=== PATIENT | male | born 1935 | race Caucasian/White ===

== ENCOUNTER 2018-03-28 14:46 | Emergency (ER) | payer MEDICARE ==
--- NOTE | 2018-03-28 16:27 | Emergency Department Record ---
History of Present Illness - General Chief complaint: Lower Extremity Pain Stated complaint: RT LEG PAIN Time Seen by Provider: 03/28/18 16:20 Source: Patient, RN notes reviewed Mode of Arrival: Ambulatory - History of Present Illness Initial comments: sharp pain in the right leg and shooting pain and it comes and goes and he was lifting a tub and it started happening. Tub weighted 50 pounds Onset/Timin -: Hour(s) Location: Right, Lower Leg History of Same: No Radiation: Distal Quality: Stabbing Consistency: Intermittent Improves with: Nothing Worsens with: Nothing Associated Symptoms: Denies other symptoms - Related Data Home Medications Medication Instructions Recorded Confirmed Last Taken Atenolol/Chlorthalidone 1 each PO DAILY 03/28/18 03/28/18 03/28/18 [Atenolol-Chlorthalidone 100-25] Potassium Chloride 10 meq PO BID 03/28/18 03/28/18 03/28/18 Warfarin Sodium 2.5 mg PO DAILY 03/28/18 03/28/18 03/27/18 Previous Rx's Medication Instructions Recorded Cyclobenzaprine HCl [Flexeril] 10 mg PO TID #30 tablet 03/28/18 Allergies Allergy/AdvReac Type Severity Reaction Status Date / Time No Known Drug Intolerances Allergy Unknown PT UNSURE Verified 03/28/18 15:10 OF REACTION Travel Screening - Travel/Exposure Within Last 30 Days Have you traveled within the last 30 days?: No Review of Systems Reviewed: No additional complaints except as noted below Constitutional: Reports: As per HPI. Denies: Chills, Fever, Malaise, Night sweats, Weakness, Weight change Eyes: Reports: As per HPI. Denies: Eye discharge, Eye pain, Photophobia, Vision change ENT: Reports: As per HPI. Denies: Congestion, Dental pain, Ear pain, Epistaxis , Hearing loss, Throat pain Respiratory: Reports: As per HPI. Denies: Cough, Dyspnea, Hemoptysis, Stridor, Wheezes Cardiovascular: Reports: As per HPI. Denies: Arrhythmia, Chest pain, Dyspnea on exertion, Edema, Murmurs, Orthopnea, Palpitations, Paroxysmal nocturnal dyspnea, Rheumatic Fever, Syncope Endocrine: Reports: As per HPI. Denies: Fatigue, Heat or cold intolerance, Polydipsia, Polyuria Gastrointestinal: Reports: As per HPI. Denies: Abdominal pain, Constipation, Diarrhea, Hematemesis, Hematochezia, Melena, Nausea, Vomiting Genitourinary: Reports: As per HPI. Denies: Dysuria, Frequency, Hematuria, Incontinence, Retention, Testicular pain, Testicular mass, Urgency Musculoskeletal: Reports: As per HPI. Denies: Arthralgia, Back pain, Gout, Joint swelling, Myalgia, Neck pain Skin: Reports: As per HPI. Denies: Bruising, Change in color, Change in hair/ nails, Lesions, Pruritus, Rash Neurological: Reports: As per HPI. Denies: Abnormal gait, Confusion, Headache, Numbness, Paresthesias, Seizure, Tingling, Tremors, Vertigo, Weakness Psychiatric: Reports: As per HPI. Denies: Anxiety, Auditory hallucinations, Depression, Homicidal thoughts, Suicidal thoughts, Visual hallucinations Hematological/Lymphatic: Reports: As per HPI. 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 - CARDIOVASCULAR Hx Cardio Disorders: Yes Hx Hypertension: Yes Hx Irregular Heartbeat: Yes Hx Pacemaker/Defib: Yes Comment:: hypercholesteremia - NEURO Hx Neuro Disorders: No - GI Hx GI Disorders: Yes Hx Reflux: Yes - Hx Genitourinary Disorders: Yes Hx Kidney Stones: Yes - ENDOCRINE Hx Endocrine Disorders: No Hx Diabetes: No Hx Thyroid Disease: No - MUSCULOSKELETAL Hx Musculoskeletal Disorders: No - PSYCH Hx Psych Problems: No - HEMATOLOGY/ONCOLOGY Hx Hematology/Oncology Disorders: Yes Hx Anemia: Yes Hx Cancer: Yes (lung) Hx Blood Transfusions: Yes Family Medical History Any Significant Family History?: Yes Hx Heart Disease: Father, Mother, Brother/Sister Physical Exam - General General Appearance: Alert, Oriented x3, Cooperative, No acute distress - Head Head exam: Normal inspection - Eye Eye exam: Normal appearance, PERRL Pupils: Normal accommodation - ENT ENT exam: Normal exam, Mucous membranes moist, Normal external ear exam, Normal orophraynx, TM's normal bilaterally Ear exam: Normal external inspection. negative: External canal tenderness Nasal Exam: Normal inspection. negative: Discharge, Sinus tenderness Mouth exam: Normal external inspection, Tongue normal Teeth exam: Normal inspection. negative: Dental caries Throat exam: Normal inspection. negative: Tonsillar erythema, Tonsillar exudate - Neck Neck exam: Normal inspection, Full ROM. negative: Tenderness - Respiratory Respiratory exam: Normal lung sounds bilaterally. negative: Respiratory distress - Cardiovascular Cardiovascular Exam: Regular rate, Normal rhythm, Normal heart sounds - GI/Abdominal GI/Abdominal exam: Soft, Normal bowel sounds. negative: Tenderness - Rectal Rectal exam: Deferred - exam: Deferred - Extremities Extremities exam: Normal inspection, Full ROM, Normal capillary refill, Tenderness (right medial leg pain) - Back Back exam: Reports: Normal inspection, Full ROM, Tenderness (right low back pain ). Denies: Muscle spasm, Rash noted - Neurological Neurological exam: Alert, Normal gait, Oriented X3, Reflexes normal - Psychiatric Psychiatric exam: Normal affect, Normal mood - Skin Skin exam: Dry, Intact, Normal color, Warm Course Vital Signs 03/28/18 15:07 Temperature 97.3 F L Pulse Rate 106 H Respiratory 16 Rate Blood Pressure 119/80 Pulse Ox 96 Disposition Clinical Impression: Quadriceps strain Qualifiers: Encounter type: initial encounter Laterality: right Qualified Code(s): S76.111A - Strain of right quadriceps muscle, fascia and tendon, initial encounter Lumbar strain Qualifiers: Encounter type: initial encounter Qualified Code(s): S39.012A - Strain of muscle, fascia and tendon of lower back, initial encounter Disposition: Home, Self-Care Condition: (1) Good Instructions: Musculoskeletal Pain (ED) Additional Instructions: follow up with Dr Mckeon Prescriptions: Cyclobenzaprine HCl [Flexeril] 10 mg PO TID #30 tablet Forms: Patient Portal Access Time of Disposition: 16:31 Quality - Quality Measures Quality Measures: N/A - Blood Pressure Screening Does Patient Have Any of the Following: No, Active Dx of HTN Blood Pressure Classification: Pre-Hypertensive BP Reading Systolic Measurement: 119 Diastolic Measurement: 80 Screening for High Blood Pressure: Patient Exclusion, Hx of HTN [G9744]
[2018-03-28] MEDS ORDERED: CYCLOBENZAPRINE 10MG TABLET PO ONE (16:28)
== END 2018-03-28 16:40 | disposition home or self-care (01) ==
LOC: ER 14:46
DX: S76.111A Strain of right quadriceps muscle, fascia and tendon, initial encounter (principal); S39.012A Strain of muscle, fascia and tendon of lower back, initial encounter; X50.0XXA Overexertion from strenuous movement or load, initial encounter; I10 Essential (primary) hypertension; Z87.891 Personal history of nicotine dependence
CPT/HCPCS: 99282

== ENCOUNTER 2018-11-14 16:25 | Emergency (ER) | payer MEDICARE ==
[2018-11-14] MEDS ORDERED: ONDANSETRON HCL IV 4 MG/2 ML VIAL IVP ONE (17:11)
[2018-11-14] MEDS ORDERED: 0.9 % SODIUM CHLORIDE 1000ML 500 ML IV SCH (17:15)
--- NOTE | 2018-11-14 17:15 | Emergency Department Record ---
History of Present Illness - General Stated complaint: VOMITING Time Seen by Provider: 11/14/18 17:10 Source: Patient Mode of Arrival: Ambulatory Limitations: No limitations - History of Present Illness Initial comments: 83 yo male presents to ED for evaluation of nausea and vomiting several times for the past 2 days. Patient denies abdominal pain, urinary symptoms, fevers, chills, or recent illness. Patient reports two episodes of "dark red" emesis that he is concerned may be blood. Patient denies chest discomfort or difficulty in breathing, does report a history of an irregular heart beat that he takes Coumadin for at his baseline. MD complaint: Nausea, Vomiting Onset/Timin -: Days(s) Description of Vomiting: Bloody Associated Abdominal Pain: No Consistency: Intermittent Improves with: None Worsens with: None Context: Anticoagulant use Associated Symptoms: Denies other symptoms - Related Data Previous Rx's Medication Instructions Recorded Omeprazole [Prilosec] 20 mg PO DAILY #30 cap. 11/14/18 Ondansetron [Zofran Odt] 4 mg PO Q6H PRN #15 tab.rapdis 11/14/18 Allergies Allergy/AdvReac Type Severity Reaction Status Date / Time No Known Drug Intolerances Allergy Unknown PT UNSURE Verified 03/28/18 15:10 OF REACTION Review of Systems Constitutional: Denies: Chills, Fever, Malaise, Night sweats Eyes: Denies: Eye discharge, Eye pain ENT: Denies: Congestion, Ear pain, Epistaxis Respiratory: Denies: Cough, Dyspnea Cardiovascular: Denies: Chest pain, Dyspnea on exertion Endocrine: Denies: Fatigue, Heat or cold intolerance Gastrointestinal: Reports: Nausea, Vomiting. Denies: Abdominal pain, Constipation Genitourinary: Denies: Incontinence, Retention Musculoskeletal: Denies: Arthralgia, Back pain Skin: Reports: Bruising. Denies: Change in color Neurological: Denies: Abnormal gait, Confusion, Headache, Numbness, Tingling, Tremors Psychiatric: Denies: Anxiety Hematological/Lymphatic: Reports: Easy bleeding, Easy bruising. 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 - CARDIOVASCULAR Hx Cardio Disorders: Yes Hx Hypertension: Yes Hx Irregular Heartbeat: Yes Hx Pacemaker/Defib: Yes Comment:: hypercholesteremia - NEURO Hx Neuro Disorders: No - GI Hx GI Disorders: Yes Hx Reflux: Yes - Hx Genitourinary Disorders: Yes Hx Kidney Stones: Yes - ENDOCRINE Hx Endocrine Disorders: No Hx Diabetes: No Hx Thyroid Disease: No - MUSCULOSKELETAL Hx Musculoskeletal Disorders: No - PSYCH Hx Psych Problems: No - HEMATOLOGY/ONCOLOGY Hx Hematology/Oncology Disorders: Yes Hx Anemia: Yes Hx Cancer: Yes (lung) Hx Blood Transfusions: Yes Family Medical History Hx Heart Disease: Father, Mother, Brother/Sister Physical Exam - General General Appearance: Alert, Oriented x3, Cooperative, Mild distress Limitations: No limitations - Head Head exam: Atraumatic, Normocephalic, Normal inspection Head exam detail: negative: Abrasion, Contusion, Murphy's sign, General tenderness, Hematoma, Laceration - Eye Eye exam: Normal appearance. negative: Conjunctival injection, Periorbital swelling, Periorbital tenderness, Scleral icterus - ENT Ear exam: negative: Auricular hematoma, Auricular trauma Nasal Exam: negative: Active bleeding, Discharge, Dried blood, Foreign body Mouth exam: negative: Drooling, Laceration, Muffled voice, Tongue elevation - Neck Neck exam: Normal inspection. negative: Meningismus, Tenderness - Respiratory Respiratory exam: Normal lung sounds bilaterally. negative: Respiratory distress, Rhonchi, Stridor, Wheezes - Cardiovascular Cardiovascular Exam: Irregular rhythm - GI/Abdominal GI/Abdominal exam: Soft. negative: Distended, Rebound, Rigid, Tenderness - Rectal Rectal exam: Deferred - exam: Deferred - Extremities Extremities exam: Normal inspection. negative: Pedal edema, Tenderness - Back Back exam: Denies: CVA tenderness (R), CVA tenderness (L) - Neurological Neurological exam: Alert, Normal gait, Oriented X3 - Psychiatric Psychiatric exam: Normal affect, Normal mood - Skin Skin exam: Normal color. negative: Abrasion Type of lesion: negative: abrasion Course - Reevaluation(s) Reevaluation #1: 11/14/18 17:32 EKG: Paced rhythm 60 LAD, no further interpretation due to paced rhythm. Reevaluation #2: 11/14/18 17:59 Laboratory studies were reviewed and appear grossly unremarkable for an acute process except for the following: INR 2.0 WBC 9.4 with 90% neutrophils Reevaluation #3: 11/14/18 19:29 CT Abdomen and Pelvis: Findings c/w esophagitis Enlargered prostate Diverticulosis without diverticulitis Patient was updated on all results No vomiting while in the ED Patient reports that his symptoms are improved. Patient was offered admission and observation, patient declined as he has small dog to care for at home. Will treat with Zofran and Prilosec at home for his symptoms. Patient appears stable for discharge at this time. Medical Decision Making - Lab Data Result diagrams: 11/14/18 17:16 11/14/18 17:16 Disposition Disposition: Discharge Clinical Impression: Esophagitis Disposition: Home, Self-Care Condition: (2) Stable Instructions: Acute Nausea and Vomiting (ED) Additional Instructions: Return to ED if your symptoms worsen or if you have any concerns. Prilosec and Zofran as directed. Follow-up with your family doctor in 1-3 days as directed. Prescriptions: Omeprazole [Prilosec] 20 mg PO DAILY #30 cap Ondansetron [Zofran Odt] 4 mg PO Q6H PRN #15 tab.rapdis PRN Reason: Nausea/Vomiting Time of Disposition: 19:27 Quality - Quality Measures Quality Measures: N/A - Blood Pressure Screening Does Patient Have Any of the Following: No Blood Pressure Classification: Pre-Hypertensive BP Reading Systolic Measurement: 137 Diastolic Measurement: 85 Screening for High Blood Pressure: < Pre-Hypertensive BP, F/U Documented > [G8950] Pre-Hypertensive Follow-up Interventions: Referral to alternative/primary care provider.
[2018-11-14 17:31] LABS: HEMATOCRIT 45.3 % (42.0-52.0); HEMOGLOBIN 15.1 gm/dl (14.0-18.0); MEAN CELL VOLUME 92.1 fl (81-97); MEAN CORPUSCULAR HEMOGLOBIN 30.7 pg (27-33); MEAN CORPUSCULAR HGB CONC 33.3 g/dl (32-36); PLATELET COUNT 158 K/uL (130-400); RED BLOOD COUNT 4.92 M/uL (4.40-5.70); RED CELL DISTRIBUTION WIDTH 14.4 % (11.5-14.5); URINE APPEARANCE SL CLOUDY; URINE BILIRUBIN NEGATIVE (NEGATIVE); URINE BLOOD NEGATIVE (NEGATIVE); URINE COLOR YELLOW; URINE GLUCOSE (UA) NEGATIVE (NEGATIVE); URINE KETONE 15 mg/dL (NEGATIVE); URINE LEUKOCYTE ESTERASE NEGATIVE (NEGATIVE); URINE NITRITE NEGATIVE (NEGATIVE); URINE PROTEIN TRACE (NEGATIVE); URINE UROBILINOGEN 0.2 E.U./dL (0.20 - 1.00); WHITE BLOOD COUNT W/O DIFF 9.4 K/uL (4.2-12.2)
[2018-11-14 17:41] LABS: PROTHROMBIN TIME (PATIENT) 19.5 SECONDS (9.5-12.1)
[2018-11-14 17:43] LABS: BLOOD UREA NITROGEN 26 mg/dL (8-23); CREATININE 0.9 mg/dL (0.7-1.2); EST GLOMERULAR FILTRATION RATE > 60 mL/min
[2018-11-14 17:44] LABS: LIPASE 33 U/L (13-60); TOTAL PROTEIN 7.3 g/dL (6.6-8.7)
[2018-11-14 17:46] LABS: GLUCOSE,RANDOM 150 mg/dL (74-109)
[2018-11-14 17:49] LABS: ALB/GLOB RATIO 1.6 (1.1-1.8); ALBUMIN 4.5 g/dL (4.0-5.0); ALKALINE PHOSPHATASE 59 U/L (40-129); ALT/SGPT 19 U/L (<41); AST/SGOT 22 U/L (10.0-50.0)
[2018-11-14 17:56] LABS: PLATELET ESTIMATE NORMAL (NORMAL)
[2018-11-14] MEDS ORDERED: ONDANSETRON 4 MG ODT TABLET SL ONE (19:28)
--- NOTE | 2018-11-17 13:22 | CT SCAN REPORT ---
EXAM: CT SCAN OF THE ABDOMEN AND PELVIS WITH CONTRAST HISTORY: ABDOMINAL PAIN WITH VOMITING FOR THE PAST DAY. TECHNIQUE: Standard CT imaging of the abdomen and pelvis was performed with intravenous contrast. 95 ml of Omnipaque 300 were administered. Comparison: Previous CT scan dated 04/16/08. FINDINGS: Mild pleural thickening is present at the right lung base. Calcified granulomas are also present. The heart is enlarged. There is no pericardial effusion. Coronary artery calcifications are present. A pacemaker lead is also noted. There is diffuse wall thickening of the distal esophagus with mild adjacent fat stranding. The appearance is suspicious for reflux esophagitis. There is no evidence for perforation or adjacent soft tissue air. The stomach is distended with fluid. No focal inflammatory changes are identified within the stomach. Note is made of small pericardial cysts just to the right of the heart. There are two cysts contiguous with one another. The larger measures 3.3 x 3.1 cm. The smaller measures 2.5 x 1.2 cm. The liver contains a tiny cyst within the right hepatic lobe. There is no enhancing mass. The gallbladder, biliary tree, pancreas, spleen, and adrenal glands are normal. There are bilateral renal cysts. The largest on the right measures 3.7 cm. The largest on the left measures 3 cm. Small nonobstructing intrarenal calculi are present bilaterally. There are four small stones within the right kidney, the largest of which measures 4 mm. There is a single stone within the left kidney which measures 4 mm. There is no obstructing calculus or hydronephrosis. Atherosclerotic calcifications are present within the aorta. There is no aneurysm or dissection. There is no retroperitoneal lymphadenopathy. There are scattered diverticula within the sigmoid colon with no evidence for acute diverticulitis. The large and small bowel loops are otherwise normal. There is no pneumoperitoneum or ascites. The prostate gland is diffusely enlarged and has a lobulated margin. The prostate indents the floor of the urinary bladder. Correlation with PSA results is recommended. The bladder is otherwise normal. There are fat containing inguinal hernias bilaterally. Extensive degenerative changes are present within the spine. No osteoblastic or osteolytic process is identified. IMPRESSION: 1. ABNORMAL WALL THICKENING OF THE DISTAL ESOPHAGUS WITH MILD ADJACENT FAT STRANDING SUGGESTING ACUTE ESOPHAGITIS. 2. MILD PLEURAL THICKENING VERSUS TINY RIGHT PLEURAL EFFUSION. 3. ENLARGED AND LOBULATED PROSTATE WHICH INDENTS THE FLOOR OF THE URINARY BLADDER. RECOMMEND CORRELATION WITH PSA RESULTS. 4. SMALL BILATERAL NONOBSTRUCTING INTRARENAL CALCULI. SMALL BILATERAL CYSTS ARE ALSO PRESENT WITHIN BOTH KIDNEYS. 5. COLONIC DIVERTICULOSIS WITH NO DIVERTICULITIS. 6. FAT CONTAINING INGUINAL HERNIAS BILATERALLY. JOB NUMBER: [id number] [facility]
== END 2018-11-14 19:58 | disposition home or self-care (01) ==
LOC: ER 16:25
DX: K20.9 Esophagitis, unspecified (principal); R11.2 Nausea with vomiting, unspecified; I10 Essential (primary) hypertension; Z70.1 Counseling related to patient's sexual behavior and orientation; Z85.118 Personal history of other malignant neoplasm of bronchus and lung; Z87.891 Personal history of nicotine dependence
CPT/HCPCS: 74177; 80053; 81003; 83690; 84484; 85027; 85610; 93005; 93010; 96361; 96374; 99284; J2405; J7030